=== PATIENT | male | born 1965 | race American Indian/Alaskan Native ===

== ENCOUNTER 2016-11-23 19:39 | Observation (INO) | payer MEDICAID ==
[2016-11-23 19:48] VITALS: BMI 21.7
[2016-11-23 20:09] VITALS: RESP 16; TEMP 98.4
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
--- NOTE | 2016-11-23 21:55 | CT ---
EXAM: CT Head Without Intravenous Contrast. CLINICAL HISTORY: 51 years old, male; Injury or trauma; Fall; Initial encounter; Abrasion; Forehead; Additional info: R/O fx/ ich (s/p fall) TECHNIQUE: Axial computed tomography images of the head/brain without intravenous contrast. This CT exam was performed using one or more of the following dose reduction techniques: automated exposure control, adjustment of the mA and/or kV according to patient size, and/or use of iterative reconstruction technique. COMPARISON: CT - HEAD W/O CONTRAST 10/19/2016 12:05:10 AM FINDINGS: Brain: Mild atrophy. No intracranial hemorrhage. No mass. No edema. Ventricles: No hydrocephalus. Bones/joints: No acute fracture. Soft tissues: RIGHT frontal soft tissue swelling. Sinuses: Scattered moderate mucosal thickening of ethmoid sinuses. Mastoid air cells: No mastoid effusion. Orbits: Unremarkable as visualized. IMPRESSION: 1. No intracranial hemorrhage. 2. Sinus disease. 3. Incidental/non-acute findings are described above.
[2016-11-23] MEDS ORDERED: TDAP Vaccine 0.5 mL Syr IM ONE (22:58)
[2016-11-24] MEDS ORDERED: TDAP Vaccine 0.5 mL Syr IM ONE (06:26)
[2016-11-24 06:43] VITALS: BP 115/74; PULSE 73; O2SAT 100
== END 2016-11-24 06:32 | disposition home or self-care (01) ==
LOC: ED 19:39 → EROBSV 20:30
PROVIDERS: ADMIT Emergency Medicine; ATTEND Emergency Medicine
DX: F10.129 Alcohol abuse with intoxication, unspecified (principal); S01.81XA Laceration without foreign body of other part of head, initial encounter; V19.3XXA Pedal cyclist (driver) (passenger) injured in unspecified nontraffic accident, initial encounter; Y93.55 Activity, bike riding
CPT/HCPCS: 12011; 70450; 90471; 90715; 99285; G0378

== ENCOUNTER 2016-11-29 15:55 | Emergency (ER) | payer MEDICAID ==
[2016-11-29 15:55] VITALS: BMI 21.7
[2016-11-29 16:04] VITALS: BP 114/69; PULSE 80; RESP 18; TEMP 98.3; O2SAT 98
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
== END 2016-11-29 17:06 | disposition home or self-care (01) ==
LOC: ED 15:55
DX: Z48.02 Encounter for removal of sutures (principal)